=== PATIENT | female | born 1970 | race Caucasian/White ===

== ENCOUNTER 2016-09-24 20:54 | Emergency (ER) | payer OTHER ==
[~2016-09-24] VITALS: Ht 162.6 cm; Wt 83.0 kg
[~2016-09-24 20:54] MED LIST: ASPI-482 PO; CLOP75TA27 PO; CYCL5TAB PO; EZET1TAB19 PO; HYDR-2672 PO; LANS30TA6 PO; LOSA100T6 PO; META800T21 PO; METF500T4 PO; METO100T2 PO; NIAC1000 PO; OMEG1CAP2 PO; TELM40TA PO; TELM80TA PO; VENTOLIN HFA18 GM IH
[2016-09-24 21:15] VITALS: BP 138/73
[2016-09-24] MEDS ORDERED: HYDR-971 PO (21:42)
[2016-09-24] MEDS ORDERED: AMOX875T PO (21:42)
--- NOTE | 2016-09-24 21:42 | PHYS DOC ---
Past Medical History Past Medical History: CAD, COPD, Diabetes-Type II, High Cholesterol, Heart Disease, Hypertension, [place], Sciatica, Other Additional Past Medical Histor: brain tumor, herniated disc, chronic pain, ulcerative collitis. Past Surgical History: Angioplasty, , Hysterectomy Additional Past Surgical Histo: brain tumor removed, cardiac stents Alcohol Use: Occasionally Drug Use: None Adult General Chief Complaint Chief Complaint: EARACHE/EAR PAIN [facility] HPI Patient is a 46 year old female with history of diabetes, hypertension, COPD, who presents today with left lower gum that her pain and left ear pain that began 4 days ago. Patient denies any fever coughing or congestion. She has an appointment with her dentist on . She states she broke her left lower tooth biting into candy. Review of Systems Review of Systems Constitutional: Denies fever or chills [] Eyes: Denies change in visual acuity, redness, or eye pain [] HENT: Left ear pain and left lower gum dental pain Respiratory: Denies cough or shortness of breath [] Cardiovascular: No additional information not addressed in HPI [] GI: Denies abdominal pain, nausea, vomiting, bloody stools or diarrhea [] : Denies dysuria or hematuria [] Musculoskeletal: Denies back pain or joint pain [] Integument: Denies rash or skin lesions [] Neurologic: Denies headache, focal weakness or sensory changes [] Endocrine: Denies polyuria or polydipsia [] Allergies Allergies Allergies Coded Allergies Type Severity Reaction Last Updated Verified ciprofloxacin Allergy Intermediate itchy 11/02/15 Yes methocarbamol Allergy Intermediate Rash 11/02/15 Yes morphine Allergy Intermediate sensativity 11/02/15 Yes Physical Exam Physical Exam Constitutional: Well developed, well nourished, no acute distress, non-toxic appearance. [] HENT: Normocephalic, atraumatic, bilateral external ears normal, oropharynx moist, no oral exudates, nose normal. [] Approximately tooth #18 appears broken. Scattered dental caries throughout her teeth Bilateral TM are normal. Eyes: PERRLA, EOMI, conjunctiva normal, no discharge. [] Neck: Normal range of motion, no tenderness, supple, no stridor. [] Cardiovascular:Heart rate regular rhythm, no murmur [] Lungs & Thorax: Bilateral breath sounds clear to auscultation [] Abdomen: Bowel sounds normal, soft, no tenderness, no masses, no pulsatile masses. [] Skin: Warm, dry, no erythema, no rash. [] Back: No tenderness, no CVA tenderness. [] Extremities: No tenderness, no cyanosis, no clubbing, ROM intact, no edema. [] Neurologic: Alert and oriented X 3, normal motor function, normal sensory function, no focal deficits noted. [] Psychologic: Affect normal, judgement normal, mood normal. [] Current Patient Data Vital Signs Vital Signs Date Time Temp Pulse Resp B/P Pulse Ox O2 Delivery O2 Flow Rate FiO2 09/24/16 21:15 97.7 67 18 99 Room Air 97.7 EKG EKG [] Radiology/Procedures Radiology/Procedures [] Course & Med Decision Making Course & Med Decision Making Pertinent Labs and Imaging studies reviewed. (See chart for details) Patient has dental caries and left ear pain. Discharged with amoxicillin for 10 days. Follow-up with primary care doctor in one week. She also has an appointment with her dentist on this week. Provided return precautions and discharged in stable condition. Dragon Disclaimer Dragon Disclaimer This electronic medical record was generated, in whole or in part, using a voice recognition dictation system. Departure Departure Impression: Primary Impression: Dentalgia Additional Impressions: Dental caries Broken tooth Otalgia of left ear Disposition: HOME, SELF-CARE Condition: STABLE Referrals: NO PCP (PCP) Follow-up with your dentist as soon as possible Patient Instructions: Dental Caries Additional Instructions: You were seen for ear pain and dental infection. Complete your antibiotics. Follow-up with your dentist as soon as possible. Come back to the emergency room if symptoms worsen or you have concerning symptoms Scripts Amoxicillin 875 Mg Tablet1 Tab PO BID #20 TAB Prov:MIRIAM COSME APRN 09/24/16 Hydrocodone/Apap 5-325 ([place] 5-325 Tablet)1 Each Tablet1-2 Tab PO Q4-6HRS #12 TAB Prov:MIRIAM COSME APRN 09/24/16 Problem Qualifiers Additional Impressions: Broken tooth Encounter type: initial encounter Fracture type: closed Qualified Code: S02.5XXA - Fracture of tooth (traumatic), initial encounter for closed fracture MIRIAM COSME APRN Sep 24, 2016 21:42
== END 2016-09-24 21:56 | disposition home or self-care (01) ==
LOC: ER 20:54
DX: S02.5XXA Fracture of tooth (traumatic), initial encounter for closed fracture (principal); K02.9 Dental caries, unspecified; E11.9 Type 2 diabetes mellitus without complications; H92.02 Otalgia, left ear; I10 Essential (primary) hypertension; E78.00 Pure hypercholesterolemia, unspecified; J44.9 Chronic obstructive pulmonary disease, unspecified; I25.2 Old myocardial infarction; I25.10 Atherosclerotic heart disease of native coronary artery without angina pectoris; Z90.710 Acquired absence of both cervix and uterus; G89.29 Other chronic pain; Z95.5 Presence of coronary angioplasty implant and graft; Z88.5 Allergy status to narcotic agent; Z88.8 Allergy status to other drugs, medicaments and biological substances; X58.XXXA Exposure to other specified factors, initial encounter; Y93.89 Activity, other specified; Y92.89 Other specified places as the place of occurrence of the external cause; Y99.8 Other external cause status
CPT/HCPCS: 99283

== ENCOUNTER 2016-10-19 02:29 | Emergency (ER) | payer OTHER ==
[~2016-10-19] VITALS: Ht 165.1 cm; Wt 83.0 kg
[~2016-10-19 02:29] MED LIST changes: +AMOX875T PO; +HYDR-971 PO
[2016-10-19 02:36] VITALS: BP 174/95
[2016-10-19] MEDS ORDERED: ONDA4TAB10 SL (03:01)
--- NOTE | 2016-10-19 03:02 | PHYS DOC ---
Past Medical History Past Medical History: CAD, COPD, Diabetes-Type II, High Cholesterol, Heart Disease, Hypertension, [place], Sciatica, Other Additional Past Medical Histor: brain tumor, herniated disc, chronic pain, ulcerative collitis. Past Surgical History: Angioplasty, , Hysterectomy Additional Past Surgical Histo: brain tumor removed, cardiac stents Alcohol Use: Occasionally Drug Use: None Adult General Chief Complaint Chief Complaint: OTHER COMPLAINTS HPI HPI Patient is a 46 year old female with multiple medical problems presents here today secondary to numbness, tingling, discoloration to her right hand. Patient reports is normal for a long time and that she has an appointment to follow-up with a neurosurgeon. Patient reports that she has been in close contact with her primary care physician and this has been fully evaluated and he is currently referring her for more expertise opinion. Patient comes in today because her doctor wanted to make sure that there was nothing emergent going on at this time. Patient denies any other new symptomatology. Patient reports that she has some nausea from her ulcerative colitis. Patient has any fevers shakes chills cough cold runny nose. Patient's physical exam is unremarkable. Patient's right hand has good capillary refill. Sensation is intact. Pulses intact equal bilaterally. Capillary refill is equal bilaterally. Motor functions intact. No appreciable edema is noted. A/P this is a 46-year-old female who presents here today with complaint of right hand numbness and tingling has been persistent for quite a while. Patient does not have any acute emergent issues at this time that would require any further ER evaluation. Patient's symptoms are beyond the scope of the emergency department and I agree with her physicians Planter referred to a neurosurgeon for further evaluation and management of these symptoms. Patient will be given a dose of Zofran the ED to assist her with her nausea and she'll be instructed to call her doctor in the morning for further evaluation and management. Review of Systems Review of Systems Constitutional: Denies fever or chills [] Eyes: Denies change in visual acuity, redness, or eye pain [] HENT: Denies nasal congestion or sore throat [] All other review systems are negative except as documented in the history of present illness portion. Allergies Allergies Allergies Coded Allergies Type Severity Reaction Last Updated Verified ciprofloxacin Allergy Intermediate itchy 11/02/15 Yes methocarbamol Allergy Intermediate Rash 11/02/15 Yes morphine Allergy Intermediate sensativity 11/02/15 Yes Physical Exam Physical Exam Constitutional: Well developed, well nourished, no acute distress, non-toxic appearance. [] HENT: Normocephalic, atraumatic, bilateral external ears normal, Eyes: PERRLA, EOMI Neck: Normal range of motion, n Cardiovascular:Heart rate regular rhythm, Lungs & Thorax: no resp distress Abdomen: Bowel sounds normal, soft, mild tend to palp diffusely. nonsurgiocal abd exam Skin: Warm, dry, Extremities:see above Neurologic: Alert and oriented X 3, normal motor function, normal sensory function, no focal deficits noted. [] Psychologic: Affect normal, judgement normal, mood normal. [] Current Patient Data Vital Signs Vital Signs Date Time Temp Pulse Resp B/P Pulse Ox O2 Delivery O2 Flow Rate FiO2 10/19/16 02:36 98.1 76 18 174/95 100 Room Air 98.1 EKG EKG [] Radiology/Procedures Radiology/Procedures [] Course & Med Decision Making Course & Med Decision Making Pertinent Labs and Imaging studies reviewed. (See chart for details) [] Dragon Disclaimer Dragon Disclaimer This electronic medical record was generated, in whole or in part, using a voice recognition dictation system. Departure Departure Impression: Primary Impression: Paresthesia Disposition: 01 HOME, SELF-CARE Condition: STABLE Referrals: NO PCP (PCP) Patient Instructions: Paresthesia Additional Instructions: Follow-up as scheduled with your primary care physician for further evaluation of these symptoms. Scripts Ondansetron (Zofran Odt)4 Mg Tab.rapdis1 Tab SL Q6HRS PRN NAUSEA #12 TAB Prov:LUBA HERNÁNDEZ MD 10/19/16 LUBA HERNÁNDEZ MD Oct 19, 2016 03:01
[2016-10-19] MEDS ORDERED: ONDANSETRON ODT 4 MG TAB.RAPDIS PO ONE (03:30)
== END 2016-10-19 03:12 | disposition home or self-care (01) ==
LOC: ER 02:29
DX: R20.0 Anesthesia of skin (principal); R20.2 Paresthesia of skin; R23.8 Other skin changes; I11.9 Hypertensive heart disease without heart failure; E11.9 Type 2 diabetes mellitus without complications; J44.9 Chronic obstructive pulmonary disease, unspecified; I25.10 Atherosclerotic heart disease of native coronary artery without angina pectoris; E78.00 Pure hypercholesterolemia, unspecified; G89.29 Other chronic pain; I25.2 Old myocardial infarction; Z95.5 Presence of coronary angioplasty implant and graft; Z88.1 Allergy status to other antibiotic agents; Z88.5 Allergy status to narcotic agent; Z88.8 Allergy status to other drugs, medicaments and biological substances
CPT/HCPCS: 99283; Q0162

== ENCOUNTER → 2016-11-05 | Outpatient (CLI) | payer OTHER ==
[2016-10-19 02:36] VITALS: BP 174/95
[~2016-11-05] MED LIST changes: +ONDA4TAB10 SL
--- NOTE | 2016-11-05 23:14 | PAIN ---
DATE OF SERVICE: 11/05/2016 PROGRESS NOTE DIAGNOSES: 1. Cervical radiculopathy with cervical degenerative disk disease. 2. Lumbar radiculopathy with lumbar herniated disk and lumbar degenerative disk disease. HISTORY OF PRESENT ILLNESS: The patient is a 46-year-old female, who returns for followup status post initial evaluation and followup in 04/2016. The patient had significant pain in the base of the neck, right upper extremity in a radicular fashion as well as into the low back and right lower extremity. The patient reports, it has been worse. She is very frustrated that she is unable to get any treatment for this so far. She does have MRI scan demonstrating C5-C6, superimposed disk bulges shallow posterior central protrusion at C4-C5 and the C6-C7, broad-based disk protrusion into the right lateral recess with some corresponding radicular pain with her lumbar spine. MRI shows protrusion eccentric to the right lateral recess at L5-S1 with a posterior bulging shallow posterior central protrusion at L4-L5 as well and impingement on the descending right S1 nerve root at the L5-S1 level, again with corresponding right lumbar radiculopathy. Also, the patient reports her pain is 10/10 every day, she is very frustrated and reports that she "can't stand" regarding the pain anymore, electric shocks in the hands been dropping items with her right hand, pain radiating in the base of the neck, shoulder, upper extremity into the medial aspect of the forearm and hand involving all the fingers, mostly in the thumb and first and second fingers, electrical shocking sensations as well as some weakness, left arm is fairly on affected. The patient's low back shows some significant pain across the low back and the right posterior gluteus, posterior lateral thigh, posterior lower leg to the ankle with burning and some drop foot described by the patient on the right side. The patient had done very well with the Medrol Dosepak. We saw her last in 04/2016. The patient reports that it was lasts for about 2 weeks after the medication was done. At this time, though she has already had physical therapy and she reports about less than 12 months ago, she was unable to complete it secondary to increased pain with both the neck, shoulders, and upper extremities as well as low back and lower extremities. The patient reports that she does have a case management, who is helping her with her medical appointments and corresponding therapies and treatments has a new dispatcher relay, Dr. Mahmood, who was in her system as well regarding her cardiac stents and her Plavix. PHYSICAL EXAMINATION: VITAL SIGNS: Today, the patient's blood pressure 152/76, pulse is 80, respirations 18, temperature 98.4 degrees Fahrenheit. Height is 5 feet 6 inches, weight 193 pounds. GENERAL: The patient is awake, alert, oriented, appropriate, very pleasant demeanor. HEENT: Head shows normocephalic, atraumatic. Extraocular movements are intact and symmetrical. Oral cavity, mucous membranes are moist and pink. Dentition is intact. NECK: Shows anterior throat supple without palpable lymphadenopathy noted. Swallow reflex is symmetrical. CHEST: Shows normal on inspection. Breath sounds are clear to auscultation bilaterally. HEART: Shows S1 and S2 clear. ABDOMEN: Obese, soft, nontender, nondistended. No palpable organomegaly. No rebound or guarding demonstrated. BACK: Shows spine grossly midline. Cervical paraspinous muscle shows some moderate tenderness to palpation of the posterior superior aspect of the cervical paraspinous muscles as well as into the superior, lateral and medial trapezius, more on the right than the left, but appears roughly symmetrical without specific trigger points or radiation, very tender and firm with palpation. The patient shows some minor tenderness with extension of the cervical spine and right lateral rotation, but ____ left lateral rotation which performances fully and full forward flexion without difficulty as well. The patient's low back shows some moderate tenderness in the middle and lower distribution of paraspinous muscles bilaterally without significant radiation. Muscle girth is normal on palpation symmetrical, without atrophy or hypertrophy. The patient shows good rotation and motion of the lumbar spine, both laterally as well as extension and flexion without difficulty. Upper extremities show deep tendon reflexes at 2+ in the biceps and triceps tendons. Motor exam is approximately 3-4 on a scale of 5 with right dbas strength and 5/5 on the left, bicep and tricep flexion 4/5 right and 5/5 on the left. Peripheral pulses are 2+ in radial distribution bilaterally. LOWER EXTREMITIES: Show deep tendon reflexes at 2+ in the patellar, 1+ tendo calcaneus tendons. Motor exam is approximately 4/5 on the right and 5/5 on the left, no obvious foot drop ____ on exam today. The patient reports she can develop this with increased activity on the right side. Quadriceps and hamstring flexion are 4/5 on the right and 5/5 on the left as well. The patient does have a mild positive straight leg raise on the right side at about 45 degrees, but is decreased with knee flexion, left side negative. Gaenslen's and Fredi's maneuvers are negative bilaterally as well. Options were discussed with the patient and the patient's old chart was reviewed. Her current medication regimen updated. Current review of systems updated today as well and we will preauthorize the patient for first for holding her Plavix. We will clear this with her dispatcher relay to have this on record if she is able to have the procedure in the future. Also, we will preauthorize the patient for cervical epidural steroid injection with significant findings on MRI scan as noted and radicular pain with weakness and developing pain and electrical sensations in the right arm and hand eventually may arthritis for lumbar epidural steroid injection. She does have significant radicular patterns into the right lower extremity as well, but the right upper extremity is much more significant as far as the tenderness and pain in a radicular qualities. Again, the patient reporting that she had tried physical therapy less than 12 months ago, but was unable to tolerate it is made the pain worsened her right upper extremity and shoulder. We will wait for preauthorization and have the patient return for planned cervical epidural steroid injection, assuming clearance with the patient's dispatcher relay to hold her Plavix as well. GUCCI LYLE MD DR: BENNIE/braydon JOB#: [id number] / [id number]
== END | disposition home or self-care (01) ==
LOC: PNCL 08:35
PROVIDERS: ATTEND Anesthesiology
DX: M50.10 Cervical disc disorder with radiculopathy, unspecified cervical region (principal); M51.26 Other intervertebral disc displacement, lumbar region; M51.16 Intervertebral disc disorders with radiculopathy, lumbar region
CPT/HCPCS: 99212

== ENCOUNTER → 2016-12-10 | Outpatient (CLI) | payer OTHER ==
--- NOTE | 2016-12-10 13:14 | CARD ---
APPROVED REPORT EXAM: Two-dimensional and M-mode echocardiogram with Doppler and color Doppler. Other Information Quality : Average Rhythm : NSR INDICATION Cardiac Disease: CAD 2D DIMENSIONS RVDd2.8 (2.9-3.5cm)Left Atrium(2D)3.5 (1.6-4.0cm) IVSd1.1 (0.7-1.1cm)Aortic Root(2D)3.0 (2.0-3.7cm) LVDd5.2 (3.9-5.9cm)LVOT Diameter2.2 (1.8-2.4cm) PWd1.1 (0.7-1.1cm)LVDs3.8 (2.5-4.0cm) FS (%) 27.7 %SV70.2 ml LVEF(%)53.4 (>50%) Aortic Valve AoV Peak Uzair.150.7cm/sAoV VTI31.2cm AO Peak GR.9.1mmHgLVOT Peak Uzair.112.7cm/s LVOT VTI 24.53cmAO Mean GR.5mmHg EBONY (VMAX)2.92yi5ZUF (VTI)3.02cm2 Mitral Valve MV E Egisfzug13.4cm/sMV DECEL [id number] MV A Yhrhbevk72.0cm/sMV E Mean Gr.1mmHg MV JHW54uhS/A Ratio0.9 MV A Jgqfpxni143iuLOK (PHT)4.31cm2 TDI E/Lateral E'12.2E/Medial E'11.0 Tricuspid Valve TR P. Qtktrgdq090sn/sRAP [id number] TR Peak Gr.18iyKlATDQ12rqIi LEFT VENTRICLE The left ventricle is normal size. There is normal left ventricular wall thickness. Left ventricle sy stolic function is normal. The Ejection Fraction is 50-55%. There is normal LV segmental wall motion. The left ventricular diastolic function and filling is normal for age. There is no ventricular septa l defect visualized. RIGHT VENTRICLE The right ventricle is normal size. The right ventricular systolic function is normal. ATRIA The left atrium size is normal. The right atrium size is normal. The interatrial septum is intact wit h no evidence for an atrial septal defect or patent foramen ovale as noted on 2-D or Doppler imaging. AORTIC VALVE The aortic valve is not well visualized. The aortic valve is trileaflet. Doppler and Color Flow revea led no significant aortic regurgitation. There is no significant aortic valvular stenosis. MITRAL VALVE The mitral valve is normal in structure and function. There is no mitral valve stenosis. Doppler and Color Flow revealed trace mitral regurgitation. TRICUSPID VALVE The tricuspid valve is normal in structure and function. Doppler and Color Flow revealed trace tricus pid regurgitation. The PA pressure was estimated at 18 mmHg. There is no tricuspid valve stenosis. PULMONIC VALVE The pulmonic valve is not well visualized. Doppler and Color Flow revealed no pulmonic valvular regur gitation. There is no pulmonic valvular stenosis. GREAT VESSELS The aortic root is normal in size. The IVC is normal in size and collapses >50% with inspiration. PERICARDIAL EFFUSION There is no evidence of significant pericardial effusion. Critical Notification Critical Value: No <Conclusion> Left ventricle systolic function is normal. The Ejection Fraction is 50-55%. There is normal LV segmental wall motion.
== END | disposition home or self-care (01) ==
LOC: ECHO 09:50
PROVIDERS: ATTEND Internal Medicine Cardiovascular Disease
DX: I08.1 Rheumatic disorders of both mitral and tricuspid valves (principal)
CPT/HCPCS: 93306

== ENCOUNTER → 2017-02-12 | Outpatient (CLI) | payer OTHER ==
[~2017-02-12] MED LIST changes: -CLOP75TA27 PO; +CLOP75TA57 PO; -EZET1TAB19 PO; +EZET1TAB41 PO; +GABA-587 PO; +GADOBUTROL 10 MMOL/10 ML VIAL IV ONE; -HYDR-2672 PO; +HYDR-2766 PO; +META-21 PO; -META800T21 PO; +OMEP40CA5 PO
--- NOTE | 2017-02-12 12:03 | KCIC ---
MRI of the cervical spine without and with contrast 02/12/2017 CLINICAL HISTORY: History of [employer] demyelination with cervical spinal cord lesion. Technique: Unenhanced T1-weighted, T2-weighted and inversion recovery sagittal and gradient echo, T2-weighted and T1-weighted axial images of the cervical spine were obtained. After the intravenous administration 8 cc of Gadavist, enhanced T1 weighted sagittal and axial images of the cervical spine were obtained. FINDINGS: Comparison study is dated 03/21/2016. Very mild lateral curvature of the cervical spine is seen convex to the right. There is straightening of the normal cervical lordosis. Degenerative signal changes are seen involving all of the disks of the cervical spine. Degenerative signal changes are seen within the marrow surrounding the C5-C6 and C6-7 discs. Increased signal intensity is seen on the T2-weighted and inversion recovery images involving the cervical spinal cord extending from the mid C4 level to the mid C6 level and to lesser extent centered at C6-7. This has increased since the previous examination. This is felt to most likely reflect a combination of cord demyelination given the patient's history and edema related to cord impingement from cervical spinal canal stenosis. A focal area of abnormal enhancement involving the central cervical spinal cord posteriorly, extending to the right and superiorly, at the mid C6 level is again seen. This measures 1 cm in greatest diameter. It has increased in size since the previous examination where it measured 8 mm in greatest diameter. This may reflect an area of active demyelination. There is no significant mass effect associated with it. No new area of abnormal contrast enhancement is seen. At the C2-3 disc space there is a minimal generalized disc bulge. Degenerative changes are seen involving the uncovertebral and facet joints bilaterally. These findings do not result in significant central spinal canal or neural foraminal stenosis. At the C3-4 disc space there is a mild generalized disc bulge. Degenerative changes are seen involving the uncovertebral and facet joints bilaterally. These findings do not result in significant central spinal canal stenosis. Mild bilateral neural foraminal stenosis is seen. At the C4-5 disc space there is a mild generalized disc bulge. Superimposed on this disc bulge is a focal central disc protrusion. This measures 3 mm in AP diameter. Degenerative changes are seen involving the uncovertebral and facet joints, right greater than left. These findings efface the anterior CSF without resulting in significant central spinal canal stenosis. Mild to moderate right greater than left neural foraminal stenosis is seen. At the C5-6 disc space there is a mild to moderate generalized disc bulge. Superimposed on this disc bulge is a focal central disc herniation. This measures 3.5 mm in AP diameter. Degenerative changes are seen involving the uncovertebral and facet joints bilaterally. These findings efface the anterior and posterior CSF resulting in mild to moderate central spinal canal stenosis with mild to moderate cord impingement. Mild to moderate bilateral neural foraminal stenosis is seen. The disc herniation is new since the previous examination. The central spinal canal stenosis has increased since the previous examination as has the cord impingement. At the C6-7 disc space there is a mild to moderate generalized disc bulge which is eccentric to the right. Degenerative changes are seen involving the uncovertebral and facet joints, left greater than right. These findings efface the anterior and posterior CSF resulting in mild central spinal canal stenosis without significant cord impingement. Mild to moderate bilateral neural foraminal stenosis is seen. At the C7-T1 disc space there is a mild generalized disc bulge. Degenerative changes are seen involving the uncovertebral and facet joints bilaterally. These findings do not result in significant central spinal canal or neural foraminal stenosis. IMPRESSION: 1. Increased signal intensity is seen involving the cervical spinal cord on the T2-weighted and inversion images extending from the mid C4 level to the mid C6 level and to lesser extent centered at C6-7. This has increased since the previous examination. This is felt to most likely represent represent a combination cord demyelination given the patient's history and edema related to cord impingement from cervical spinal canal stenosis. A focal area of abnormal contrast enhancement is seen involving the cervical spinal cord at the mid C6 level extending superiorly and to the right of midline is again seen. This measures 1 cm in greatest diameter and has increased in size since the previous examination as outlined above. There is no significant associated mass effect. This may reflect an area of active demyelination given the patient's history. No new area of abnormal contrast enhancement is seen. 2. Degenerative changes are seen throughout the cervical spine. At the C5-6 level a focal central disc herniation is seen which is new since the previous examination. This contributes to mild to moderate central spinal canal stenosis with mild to moderate cord impingement at C5-6 which has increased since previous study. Mild central spinal canal stenosis is seen at C6-7 without definite evidence of cord impingement. Multilevel neural foraminal stenosis of varying severity is seen as outlined above. Electronically signed by: Harjinder Lowery MD (02/12/2017 11:58 AM)
== END | disposition home or self-care (01) ==
LOC: KCIC MRI 08:06
PROVIDERS: ATTEND Psychiatry & Neurology Neurology with Special Qualifications in Child Neurology
DX: G37.9 Demyelinating disease of central nervous system, unspecified (principal); J45.909 Unspecified asthma, uncomplicated; Z86.79 Personal history of other diseases of the circulatory system; Z79.01 Long term (current) use of anticoagulants; F17.200 Nicotine dependence, unspecified, uncomplicated
CPT/HCPCS: 72156; A9585

== ENCOUNTER 2017-08-13 13:53 | Inpatient (IN) | payer OTHER ==
[~2017-08-13] VITALS: Ht 162.6 cm; Wt 81.6 kg
[~2017-08-13 13:53] MED LIST changes: -GADOBUTROL 10 MMOL/10 ML VIAL IV ONE; -METO100T2 PO; +METO100T7 PO
[2017-08-13] MEDS ORDERED: CLOPIDOGREL BISULFATE 75 MG TABLET PO ONE (14:45)
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
[2017-08-13] MEDS ORDERED: ONDANSETRON PF 4 MG/2 ML VIAL. IV PRN ×2 (16:00→16:45)
[2017-08-13] MEDS ORDERED: NITROGLYCERIN SUBLINGUAL 0.4 MG BOTTLE OF 25. SL PRN (16:00)
[2017-08-13 16:18] LABS: BASO # 0.1 x10^3/uL (0.0-0.2); BASO % 1 % (0-3); EOS % 0 % (0-3); HEMATOCRIT 40.8 % (36.0-47.0); HEMOGLOBIN 13.6 g/dL (12.0-15.5); LYMPH # 2.2 x10^3/uL (1.0-4.8); LYMPH % 23 % (24-48); MEAN CORPUSCULAR HEMOGLOBIN 30 pg (25-35); MEAN CORPUSCULAR HGB CONC 33 g/dL (31-37); MEAN CORPUSCULAR VOLUME 91 fL (79-100); MONO % 5 % (0-9); NEUT % 70 % (31-73); PLATELET COUNT 253 x10^3/uL (140-400); RED BLOOD COUNT 4.51 x10^6/uL (3.50-5.40); RED CELL DISTRIBUTION WIDTH 13.8 % (11.5-14.5); WHITE BLOOD COUNT 9.3 x10^3/uL (4.0-11.0)
--- NOTE | 2017-08-13 16:18 | PHYS DOC ---
Past Medical History Past Medical History: Anxiety, CAD, COPD, Depression, Diabetes-Type II, High Cholesterol, Heart Disease, Hypertension, OR, Sciatica, Other Additional Past Medical Histor: brain tumor, herniated disc, chronic pain, ulcerative collitis. Past Surgical History: Angioplasty, , Hysterectomy Additional Past Surgical Histo: brain tumor removed, cardiac stents Alcohol Use: Occasionally Drug Use: None Adult General Chief Complaint Chief Complaint: MULTIPLE COMPLAINTS HPI HPI 47-year-old female presenting to the emergency department today with 2 main complaints. First complaint: Patient complains of having major depression but denies suicidal ideation. She was recently kicked out of her house and is tearful in the examination room. She denies a plan to hurt herself. Second complaint: Patient endorses chest pain that is a sharp sensation in the middle of her chest that is nonradiating intermittent for the last 4-5 hours. She has a history of stent placement but was not at this hospital when she received that. She has an the past seen Dr. Mahmood. Review of systems is negative for fevers chills cough abdominal pain nausea or vomiting. She denies diaphoresis. All other review of systems is negative unless otherwise noted in history of present illness. ED course: 47-year-old female presenting to the emergency department today with chest pain. On examination, the patient is afebrile with a normal heart rate. She is well-appearing. Mildly tearful. Heart and lungs are unremarkable. Abdomen is soft and nontender. Nondistended. EKG obtained and reviewed by myself shows sinus rhythm with a regular rate. ST segments congruent. Not consistent with ACS. CXR and blood work obtained as well which were unremarkable. The patient was then admitted the hospital for further evaluation workup and care. I placed a consult for cardiology. The patient denied suicidal ideation to me. We had the psychiatric assessment team come to evaluate the patient. Given the patient will be in the hospital and placed the patient reportedly on suicide precautions in a one-to-one (on bridge orders). Review of Systems Review of Systems SEE ABOVE. Current Medications Current Medications Current Medications Medications (Trade) Dose Ordered Sig/Jossie Start Time Stop Time Status Last Admin Dose Admin Clopidogrel Bisulfate (Plavix) 75 mg 1X ONCE 08/13/17 14:45 08/13/17 14:46 DC 08/13/17 15:36 75 MG Nitroglycerin (Nitrostat) 0.4 mg PRN Q5MIN PRN 08/13/17 16:00 08/14/17 15:59 Ondansetron HCl (Zofran) 4 mg PRN Q8HRS PRN 08/13/17 16:00 08/14/17 15:59 Sodium Chloride 1,000 ml @ 100 mls/hr Q10H 08/13/17 15:58 08/14/17 15:57 Allergies Allergies Allergies Coded Allergies Type Severity Reaction Last Updated Verified ciprofloxacin Allergy Intermediate itchy 11/02/15 Yes methocarbamol Allergy Intermediate Rash 11/02/15 Yes morphine Allergy Intermediate sensativity 11/02/15 Yes Physical Exam Physical Exam SEE ABOVE Constitutional: Well developed, well nourished, no acute distress, non-toxic appearance. HENT: Normocephalic, atraumatic, bilateral external ears normal, oropharynx moist, no oral exudates, nose normal. [] Eyes: PERRLA, EOMI, conjunctiva normal, no discharge. Neck: Normal range of motion, no tenderness, supple, no stridor. [] Cardiovascular:Heart rate regular rhythm, no murmur [] Lungs & Thorax: Bilateral breath sounds clear to auscultation Abdomen: Bowel sounds normal, soft, no tenderness, no masses, no pulsatile masses. [] Skin: Warm, dry, no erythema, no rash. [] Back: No tenderness, no CVA tenderness. Extremities: No tenderness, no cyanosis, no clubbing, ROM intact, no edema. [] Neurologic: Alert and oriented X 3, normal motor function, normal sensory function, no focal deficits noted. Psychologic: Affect normal, judgement normal, mood normal. [] Current Patient Data Vital Signs Vital Signs Date Time Temp Pulse Resp B/P (MAP) Pulse Ox O2 Delivery O2 Flow Rate FiO2 08/13/17 14:08 98.0 174/95 (121) 98.0 EKG EKG [] Radiology/Procedures Radiology/Procedures [] Course & Med Decision Making Course & Med Decision Making Pertinent Labs and Imaging studies reviewed. (See chart for details) [] Dragon Disclaimer Dragon Disclaimer This electronic medical record was generated, in whole or in part, using a voice recognition dictation system. Departure Departure Impression: Primary Impression: Chest pain Disposition: ADMITTED INPATIENT Admitting Physician: Catrina Palm Condition: STABLE Referrals: NO PCP (PCP) SALOMON COWAN MD Aug 13, 2017 16:18
[2017-08-13 16:20] LABS: CALCIUM 9.4 mg/dL (8.5-10.1); CREATININE 0.9 mg/dL (0.6-1.0); GFR 66.5; POTASSIUM 4.2 mmol/L (3.5-5.1)
[2017-08-13 16:33] LABS: DIRECT BILIRUBIN 0.1 mg/dL (0.0-0.2); TOTAL BILIRUBIN 0.4 mg/dL (0.2-1.0); TOTAL PROTEIN 7.6 g/dL (6.4-8.2)
[2017-08-13 16:36] LABS: ETHANOL < 10 mg/dL (0-10)
[2017-08-13] MEDS ORDERED: NICOTINE 21MG PATCH. TD PRN (16:45)
[2017-08-13] MEDS ORDERED: ALBUTEROL SULFATE 2.5 MG/3 ML NEBU. NEB PRN (16:45)
[2017-08-13] MEDS ORDERED: ONDANSETRON ODT 4 MG TAB.RAPDIS. PO PRN (16:45)
[2017-08-13] MEDS ORDERED: fentaNYL PF VIAL 100 MCG/2 ML VIAL IV PRN (16:45)
[2017-08-13] MEDS ORDERED: ALPRAZolam 0.25 MG TABLET PO PRN (16:45)
[2017-08-13] MEDS ORDERED: ZOLPIDEM 5 MG TABLET. PO PRN (16:45)
--- NOTE | 2017-08-13 16:49 | PDOC1 ---
History and Physical Date of Admission Date of Admission DATE: 08/13/17 TIME: 16:40 Identification/Chief Complaint Chief Complaint Chest pain and depression, suicide thoughts Problems: Source Source: Caregiver, Chart review, Patient History of Present Illness History of Present Illness 47-year-old female, obese BMI 30.9 very emotional during my visit at the emergency room. Patient has had suicide ideation just because of severe depression but she claims she will not follow through. She does not have any concrete plan, no history of previous suicide attempts. She is in between family stress. She lives in a house but her and her daughter is trying to kick her out. They kicked her out. Police was called. she claims she was carrying may be a 17 pound item moving stuff trying to get out of the house sustain a hotel, her gave her credit cards of that she can stay in until , but she accidentally hurt the left side of her chest on that 17 pound gadget now she's having chest pain mostly on chest wall area and is reproducible by palpation.Sounds like with all this family stressors, there might be some court date involved now. In any case PAT has evaluated her at the emergency room and cleared her to be outpatient psychology or psychiatrist. But the reason patient is being admitted because she mentioned chest pain. Patient does have history of stents. Last she has to indwelling stents first was in 2004 and now the last was July 30 at . She claims compliance with her aspirin and Plavix. She shows me some bruising on the right groin area which was the cath site but there was no hematoma appreciable on my exam.SHe also shows some redness in her tummy which I 'm not impressed with. EKG is okay, troponin pending. She claims she felt dizzy,tired, hot. SHe basically answers yes to every ROS and when I ask her about associated symptoms with her chest pain. No identifiable alleviating factors. She claims it moved her left breast at her left arm. Her chest pain is very reproducible by palpation on the left side. It is hard to focus her as she gets very emotional cries at me and relay stories about her personal life stressors. She claims her at daughter is trying to get some money from her mother who recently passed April 2017. Blood pressure is on the high side - systolic 160s 180s as currently she is getting worked up Past Medical History Cardiovascular: CAD, HTN, Hyperlipidemia Past Surgical History Past Surgical History: CABG, Other (back surgery, recent PCI July 30 by [facility]) Family History Family History: Heart Disease, High Cholestrol, Hypertension Social History Smoke: Quit ALCOHOL: none Drugs: None Current Problem List Problem List Problems Medical Problems: (1) Chest pain Status: Acute Problems: Current Medications Current Medications Current Medications Clopidogrel Bisulfate (Plavix) 75 mg 1X ONCE PO Last administered on t 15:36; Start 08/13/17 at 14:45; Stop 08/13/17 at 14:46; Status DC Ondansetron HCl (Zofran) 4 mg PRN Q8HRS PRN IV NAUSEA/VOMITING; Start at 16:00; Stop 08/13/17 at 16:38; Status DC Sodium Chloride 1,000 ml @ 100 mls/hr Q10H IV ; Start 08/13/17 at 15:58; Stop 08/14/17 at 15:57 Nitroglycerin (Nitrostat) 0.4 mg PRN Q5MIN PRN SL CHEST PAIN; Start 08/13/17 at 16:00; Stop 08/14/17 at 15:59 Ondansetron HCl (Zofran) 4 mg PRN Q6HRS PRN IV NAUSEA/VOMITING; Start at 16:45; Stop 08/14/17 at 16:44; Status UNV Alprazolam (Xanax) 0.25 mg PRN Q8HRS PRN PO ANXIETY / AGITATION; Start at 16:45; Status UNV Zolpidem Tartrate (Ambien) 5 mg PRN QHS PRN PO INSOMNIA; Start 08/13/17 at 16: 45; Status UNV Nicotine (Nicoderm Cq 21mg) 1 patch PRN DAILY PRN TD SMOKING CESSATION; Start 08/13/17 at 16:45; Status UNV Active Scripts Active Zofran Odt (Ondansetron) 4 Mg Tab.rapdis 1 Tab SL Q6HRS PRN Amoxicillin 875 Mg Tablet 1 Tab PO BID [place] 5-325 Tablet (Acetaminophen/Hydrocodone Bitart) 1 Each Tablet 1-2 Tab PO Q4-6HRS Reported Gabapentin 400 Mg Capsule Unknown Dose PO TID Omeprazole 40 Mg Capsule.dr 40 Mg PO DAILY Losartan Potassium 100 Mg Tablet 100 Mg PO DAILY Niaspan (Niacin) 1,000 Mg Tab.er.24h 1 Tab PO QHS Lovaza ([place]-3 Acid Ethyl Esters) 1 Gm Capsule 2 Cap PO BID Vytorin 10-80 Mg Tablet (Ezetimibe/Simvastatin) 1 Each Tablet 1 Each PO HS Ventolin Hfa Inhaler (Albuterol Sulfate) 18 Gm Hfa.aer.ad 18 Gm IH Aspir 81 (Aspirin) 81 Mg Tablet.dr 325 Mg PO DAILY Prevacid (Lansoprazole) 30 Mg Tab.rap.dr 30 Mg PO Metoprolol Tartrate 100 Mg Tablet 200 Mg PO Plavix (Clopidogrel Bisulfate) 75 Mg Tablet 75 Mg PO Allergies Allergies: Coded Allergies: ciprofloxacin (Verified Allergy, Intermediate, itchy, 11/02/15) methocarbamol (Verified Allergy, Intermediate, Rash, 11/02/15) morphine (Verified Allergy, Intermediate, sensativity, 11/02/15) ROS Review of System as Per history of present illness, otherwise hard to focus as she is very emotional. At least no GI symptoms or concerning respiratory symptoms Physical Exam General: Oriented X3, No acute distress, Other (in emotional distress) HEENT: Atraumatic, PERRLA Lungs: Clear to auscultation, Normal air movement Heart: S1S2, RRR, no thrills, no rubs, no gallops, no murmurs, no jug vein distention Breasts: Normal, Rt breast nml w/o mass, Lt breast nml w/o mass, Nipples normal Abdomen: Normal bowel sounds, Soft, No tenderness, No hepatosplenomegaly, No masses Rectal Exam: not examined PELVIC: Nml ext genitalia Extremities: No clubbing, No cyanosis, No edema, Normal pulses, No tenderness/ swelling Skin: No rashes, No breakdown, No significant lesion Neuro: Normal gait, Normal speech, Strength at 5/5 X4 ext, Normal tone, Sensation intact, Cranial nerves 3-12 NL, Reflexes 2+ Psych/Mental Status: Mental status NL, Mood NL Vitals Vitals Vital Signs Date Time Temp Pulse Resp B/P (MAP) Pulse Ox O2 Delivery O2 Flow Rate FiO2 08/13/17 14:08 98.0 174/95 (121) 98.0 Labs Labs Laboratory Tests Test 08/13/17 15:59 White Blood Count 9.3 x10^3/uL (4.0-11.0) Red Blood Count 4.51 x10^6/uL (3.50-5.40) Hemoglobin 13.6 g/dL (12.0-15.5) Hematocrit 40.8 % (36.0-47.0) Mean Corpuscular Volume 91 fL (79-100) Mean Corpuscular Hemoglobin 30 pg (25-35) Mean Corpuscular Hemoglobin Concent 33 g/dL (31-37) Red Cell Distribution Width 13.8 % (11.5-14.5) Platelet Count 253 x10^3/uL (140-400) Neutrophils (%) (Auto) 70 % (31-73) Lymphocytes (%) (Auto) 23 % (24-48) Monocytes (%) (Auto) 5 % (0-9) Eosinophils (%) (Auto) 0 % (0-3) Basophils (%) (Auto) 1 % (0-3) Neutrophils # (Auto) 6.5 x10^3uL (1.8-7.7) Lymphocytes # (Auto) 2.2 x10^3/uL (1.0-4.8) Monocytes # (Auto) 0.5 x10^3/uL (0.0-1.1) Eosinophils # (Auto) 0.0 x10^3/uL (0.0-0.7) Basophils # (Auto) 0.1 x10^3/uL (0.0-0.2) Sodium Level 144 mmol/L (136-145) Potassium Level 4.2 mmol/L (3.5-5.1) Chloride Level 106 mmol/L (98-107) Carbon Dioxide Level 27 mmol/L (21-32) Anion Gap 11 (6-14) Blood Urea Nitrogen 12 mg/dL (7-20) Creatinine 0.9 mg/dL (0.6-1.0) Estimated GFR (Cockcroft-Gault) 66.5 Glucose Level 104 mg/dL (70-99) Serum Osmolality 299 mOsm/Kg (279-304) Calcium Level 9.4 mg/dL (8.5-10.1) Total Bilirubin 0.4 mg/dL (0.2-1.0) Direct Bilirubin 0.1 mg/dL (0.0-0.2) Aspartate Amino Transf (AST/SGOT) 19 U/L (15-37) Alanine Aminotransferase (ALT/SGPT) 23 U/L (14-59) Alkaline Phosphatase 99 U/L (46-116) Total Protein 7.6 g/dL (6.4-8.2) Albumin 4.0 g/dL (3.4-5.0) Lipase 74 U/L (73-393) Salicylates Level 5.8 mg/dL (2.8-20.0) Salicylate Last Dose Date Unk Salicylate Last Dose Time Unk Acetaminophen Level < 2 mcg/ml (10-30) Acetaminophen Last Dose Date Unk Acetaminophen Last Dose Time Unk Ethyl Alcohol Level < 10 mg/dL (0-10) Laboratory Tests Test 08/13/17 15:59 White Blood Count 9.3 x10^3/uL (4.0-11.0) Red Blood Count 4.51 x10^6/uL (3.50-5.40) Hemoglobin 13.6 g/dL (12.0-15.5) Hematocrit 40.8 % (36.0-47.0) Mean Corpuscular Volume 91 fL (79-100) Mean Corpuscular Hemoglobin 30 pg (25-35) Mean Corpuscular Hemoglobin Concent 33 g/dL (31-37) Red Cell Distribution Width 13.8 % (11.5-14.5) Platelet Count 253 x10^3/uL (140-400) Neutrophils (%) (Auto) 70 % (31-73) Lymphocytes (%) (Auto) 23 % (24-48) Monocytes (%) (Auto) 5 % (0-9) Eosinophils (%) (Auto) 0 % (0-3) Basophils (%) (Auto) 1 % (0-3) Neutrophils # (Auto) 6.5 x10^3uL (1.8-7.7) Lymphocytes # (Auto) 2.2 x10^3/uL (1.0-4.8) Monocytes # (Auto) 0.5 x10^3/uL (0.0-1.1) Eosinophils # (Auto) 0.0 x10^3/uL (0.0-0.7) Basophils # (Auto) 0.1 x10^3/uL (0.0-0.2) Sodium Level 144 mmol/L (136-145) Potassium Level 4.2 mmol/L (3.5-5.1) Chloride Level 106 mmol/L (98-107) Carbon Dioxide Level 27 mmol/L (21-32) Anion Gap 11 (6-14) Blood Urea Nitrogen 12 mg/dL (7-20) Creatinine 0.9 mg/dL (0.6-1.0) Estimated GFR (Cockcroft-Gault) 66.5 Glucose Level 104 mg/dL (70-99) Serum Osmolality 299 mOsm/Kg (279-304) Calcium Level 9.4 mg/dL (8.5-10.1) Total Bilirubin 0.4 mg/dL (0.2-1.0) Direct Bilirubin 0.1 mg/dL (0.0-0.2) Aspartate Amino Transf (AST/SGOT) 19 U/L (15-37) Alanine Aminotransferase (ALT/SGPT) 23 U/L (14-59) Alkaline Phosphatase 99 U/L (46-116) Total Protein 7.6 g/dL (6.4-8.2) Albumin 4.0 g/dL (3.4-5.0) Lipase 74 U/L (73-393) Salicylates Level 5.8 mg/dL (2.8-20.0) Salicylate Last Dose Date Unk Salicylate Last Dose Time Unk Acetaminophen Level < 2 mcg/ml (10-30) Acetaminophen Last Dose Date Unk Acetaminophen Last Dose Time Unk Ethyl Alcohol Level < 10 mg/dL (0-10) VTE Prophylaxis Ordered VTE Prophylaxis Devices: Yes VTE Pharmacological Prophylaxi: Yes Assessment/Plan Assessment/Plan Assessment: Chest pain, totally musculoskeletal, as very reproducible by pain but then again admitted because of her cardiac risk factors Recent PCI to RCA July 30 at claims compliance with medications some bruising secondary to being on Plavix Obesity BMI 30.9 Depression NOS Acute family stressors Plan: Admit observation, cycle cardiac enzymes, cads consulted Obtain records from the recent July 30 stenting Resume home meds [facility], december one-to-one Discussed with BRUNILDA Marquez, [employer], seen at the emergency room #22 some Xanax when necessary, Ambien when necessary, nicotine when necessary IVONE KNAPP MD Aug 13, 2017 16:49
[2017-08-13] MEDS: IV NORMAL SALINE 1000ML BAG 1,000 ML IV SCH (17:27)
[2017-08-13 20:34] VITALS: BP 148/82
[2017-08-13] MEDS ORDERED: NIACIN ER 500 MG TABLET.ER PO SCH (21:00)
[2017-08-13] MEDS ORDERED: SIMVASTATIN 40 MG TABLET. PO SCH (21:00)
[2017-08-13] MEDS ORDERED: EZETIMIBE 10 MG TABLET. PO SCH (21:00)
[2017-08-13] MEDS: OMEGA-3 FATTY ACIDS/FISH OIL 1,000 MG CAPSULE. PO SCH (21:32)
[2017-08-13] MEDS: GABAPENTIN 400 MG CAPSULE. PO SCH (21:32)
[2017-08-13] MEDS: HYDROcodone/APAP 5/325MG 1 TAB TABLET PO PRN (21:38)
[2017-08-13 23:14] VITALS: BP 113/52
[2017-08-14 03:17] VITALS: BP 107/59
[2017-08-14] MEDS: IV NORMAL SALINE 1000ML BAG 1,000 ML IV SCH ×2 (06:02→11:58)
[2017-08-14 07:00] VITALS: BP 146/92
[2017-08-14] MEDS ORDERED: PANTOPRAZOLE 40 MG TABLET.DR. PO SCH (07:30)
[2017-08-14] MEDS ORDERED: ASPIRIN ENTERIC COATED 325 MG TABLET.DR. PO SCH (08:00)
[2017-08-14] MEDS ORDERED: CLOPIDOGREL BISULFATE 75 MG TABLET PO SCH (08:00)
--- NOTE | 2017-08-14 08:09 | EKG ---
[facility] [address] [place] [address] Test Date: 2017-08-13 Test Time: 15:24:56 Pat Name: CHARITO RUST Department: Room: [facility] Gender: F Director Of Student Aid: : 1970 Requested By: SALOMON COWAN Order Number: [id number] Reading MD: Ruperto Odom Measurements Intervals [place] Rate: 85 P: 66 TX: 150 QRS: 42 QRSD: 74 T: 49 QT: 362 QTc: 431 Interpretive Statements SINUS RHYTHM T ABNORMALITY IN ANTERIOR LEADS ABNORMAL ECG Electronically Signed On 08-22-2017 9:20:49 CURTAIN MENDER by Ruperto Odom
[2017-08-14] MEDS: OMEGA-3 FATTY ACIDS/FISH OIL 1,000 MG CAPSULE. PO SCH (08:23)
[2017-08-14] MEDS: GABAPENTIN 400 MG CAPSULE. PO SCH ×2 (08:24→14:00)
[2017-08-14] MEDS ORDERED: LANSOPRAZOLE 30 MG TAB.RAP.DR PO SCH (09:00)
[2017-08-14] MEDS ORDERED: LOSARTAN POTASSIUM 50 MG TABLET. PO SCH (09:00)
[2017-08-14] MEDS: HYDROcodone/APAP 5/325MG 1 TAB TABLET PO PRN ×2 (09:18→15:37)
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
[2017-08-14 11:00] VITALS: BP 154/90
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
== END 2017-08-14 15:31 | disposition home or self-care (01) | DRG 313 ==
LOC: ER 13:53 → ED HOLD 17:26 → 6 SOUTH 19:17
PROVIDERS: ADMIT Internal Medicine; ATTEND Internal Medicine
DX: R07.89 Other chest pain (principal); I25.10 Atherosclerotic heart disease of native coronary artery without angina pectoris; E11.9 Type 2 diabetes mellitus without complications; F41.9 Anxiety disorder, unspecified; F32.9 Major depressive disorder, single episode, unspecified; J44.9 Chronic obstructive pulmonary disease, unspecified; E78.00 Pure hypercholesterolemia, unspecified; I10 Essential (primary) hypertension; I25.2 Old myocardial infarction; G89.29 Other chronic pain; E66.9 Obesity, unspecified; E78.5 Hyperlipidemia, unspecified; Z95.5 Presence of coronary angioplasty implant and graft; Z90.710 Acquired absence of both cervix and uterus; Z95.1 Presence of aortocoronary bypass graft; Z68.30 Body mass index [BMI] 30.0-30.9, adult; Z82.49 Family history of ischemic heart disease and other diseases of the circulatory system
CPT/HCPCS: 36415; 71020; 80048; 80076; 80329; 83690; 83930; 84484; 85025; 93005; 99406; G0480; J7030; 99285-25